=== PATIENT | female | born 1980 | race African-American/Black ===

== ENCOUNTER → 2017-04-20 | Outpatient (CLI) | payer OTHER ==
[~2017-04-20] MED LIST: ACET50TA PO; IBUP80TA PO; LORC1TAB PO; MYLASUS6 PO; PRENTAB43 PO; TYLE325T5 PO; VITAPRTA PO; ZOFR4TAB3 PO
--- NOTE | 2017-04-25 11:40 | SLEEPCENT ---
DATE OF PROCEDURE: 04/20/2017 REQUESTING PROVIDER: Chiquita Fontanez NP INTERPRETATION: Nocturnal polysomnography was performed due to concern for the obstructive sleep apnea syndrome in this patient with a history of excessive somnolence and morning headaches. 8 hours and 27 minutes of data were reviewed. There were 427 minutes of sleep identified. Sleep latency was mildly prolonged at 34 minutes. Rapid eye movement (REM) latency was short at 56 minutes. Sleep architecture was fairly well preserved with five REM periods appreciated. Overall sleep efficiency was 85.8%. The patient's electrocardiogram (EKG) showed a sinus rhythm with an average heart rate of 76 beats per minute. Electroencephalogram (EEG) showed reasonably normal waveforms for awake and sleep. There were 70 respiratory events identified of 10 seconds in duration or greater for an apnea-hypopnea index of 9.8. The events were primarily obstructive, not exclusive to body posture, more frequent but not exclusive to stage REM. Respiratory related arousals occurred 2.7 times per hour. Oxygen desaturations were seen into the low 80s. The remaining measures of sleep physiology were normal. IMPRESSION: Moderate obstructive sleep apnea syndrome (G47.33). Apnea-hypopnea index of 9.8. RECOMMENDATIONS: The patient should be encouraged to return to the sleep disorder center for pressure therapy. In the interim, alcohol and sedative avoidance should be practiced and caution exercised during the operation of motor vehicles.
== END ==
LOC: M SLEEP 20:00
PROVIDERS: ATTEND Nurse Practitioner Adult Health
DX: G47.30 Sleep apnea, unspecified (principal)

== ENCOUNTER → 2017-04-29 | Outpatient (CLI) | payer OTHER ==
[2017-04-29 19:20] LABS: BASO % 0.6 % (0.0-1.0); EOS # 0.4 K/mm3 (0.0-0.50); EOS % 5.1 % (0.0-3.0); LARGE UNSTAINED CELL # 0.2 K/mm3 (0.0-0.4); LARGE UNSTAINED CELL % 3.3 % (0.0-4.0); LYMPH # 2.5 K/mm3 (1.5-4.5); LYMPH % 36.4 % (24.0-44.0); MEAN CORPUSCULAR HEMOGLOBIN 29.3 pg (27.0-33.0); MEAN CORPUSCULAR HGB CONC 33.6 g/dl (32.0-36.5); MEAN CORPUSCULAR VOLUME 87.2 fl (80.0-96.0); MONO # 0.4 K/mm3 (0.0-0.8); MONO % 5.3 % (0.0-5.0); NEUTROPHILS # 3.4 K/mm3 (1.8-7.7); NEUTROPHILS % 49.3 % (36.0-66.0); PLATELET COUNT, AUTOMATED 315 k/mm3 (150-450); RED CELL DISTRIBUTION WIDTH 12.8 % (11.5-14.5); WHITE BLOOD COUNT 6.8 K/mm3 (4.0-10.0)
[2017-04-29 19:44] LABS: ALBUMIN 3.6 GM/DL (3.2-5.2); ALBUMIN/GLOBULIN RATIO 0.84 (1.00-1.93); ALKALINE PHOSPHATASE 67 U/L (45-117); ALT/SGPT 18 U/L (12-78); ANION GAP 9 MEQ/L (8-16); AST/SGOT 12 U/L (15-37); BILIRUBIN,TOTAL 0.3 MG/DL (0.2-1.0); BLOOD UREA NITROGEN 9 MG/DL (7-18); CALCIUM LEVEL 8.4 MG/DL (8.5-10.1); CARBON DIOXIDE LEVEL 23 MEQ/L (21-32); CHLORIDE LEVEL 107 MEQ/L (98-107); CHOLESTEROL LEVEL 136 MG/DL (<200); CREATININE FOR GFR 0.76 MG/DL (0.55-1.02); GLOMERULAR FILTRATION RATE > 60.0 (>60); GLUCOSE, FASTING 85 MG/DL (70-105); SODIUM LEVEL 139 MEQ/L (136-145); TOTAL PROTEIN 7.9 GM/DL (6.4-8.2); TRIGLYCERIDES LEVEL 85 MG/DL (<150)
== END ==
LOC: M LAB 15:30
PROVIDERS: ATTEND Emergency Medicine
DX: E55.9 Vitamin D deficiency, unspecified (principal); G43.909 Migraine, unspecified, not intractable, without status migrainosus

== ENCOUNTER → 2017-05-02 | Outpatient (CLI) | payer OTHER ==
--- NOTE | 2017-05-09 07:48 | SLEEPCENT ---
DATE OF PROCEDURE: 05/02/2017 REFERRING PHYSICIAN: Dr. Victorino Cramer. INTERPRETATION: Nocturnal polysomnography was performed for titration of pressure therapy in this patient with obstructive sleep apnea syndrome, apnea/hypopnea index 9.8. For testing, a [employer]Med Quattro full-face mask of extra small size was used, 4 cm of water pressure was applied to the circuit and the lights were extinguished. 6 hours and 59 minutes of data were reviewed. There were 375 minutes of sleep identified. Sleep latency was mildly prolonged at 21 minutes. REM latency was short at 57 minutes. Sleep architecture was good with four REM periods appreciated. Overall sleep efficiency was 91.5%. The EKG showed a sinus rhythm with an average heart rate of 68 beats per minute. EEG showed reasonably normal waveforms for awake and sleep. Respiratory events were found best palliated with CPAP at a pressure of +7 with which pressure the patient slept through REM without respiratory events or oxygen desaturation. Little limb activity was appreciated and the patient's saturations remained in reasonably normal range. IMPRESSION: Obstructive sleep apnea (G47.33). RECOMMENDATION: Night use of pressure therapy at 7 cm of water.
== END ==
LOC: M SLEEP 19:47
PROVIDERS: ATTEND Nurse Practitioner Adult Health
DX: G47.33 Obstructive sleep apnea (adult) (pediatric) (principal)